=== PATIENT | female | born 1965 | race Caucasian/White ===

== ENCOUNTER 2017-04-06 14:03 | Emergency (ER) | payer OTHER, SELFPAY ==
[~2017-04-06] VITALS: Ht 157.5 cm; Wt 90.5 kg
[2017-04-06 14:38] VITALS: BP 130/77
[2017-04-06] MEDS ORDERED: DIPHENHYDRAMINE 25 MG CAPSULE ONE (14:47)
[2017-04-06] MEDS ORDERED: LORazepam 1MG TABLET ONE (14:47)
[2017-04-06] MEDS ORDERED: DIPHENHYDRAMINE 25 MG CAPSULE PO ONE (15:00)
[2017-04-06] MEDS ORDERED: LORazepam 1MG TABLET PO ONE (15:00)
== END 2017-04-06 16:40 | disposition home or self-care (01) ==
LOC: ED 16:34
DX: T78.1XXA Other adverse food reactions, not elsewhere classified, initial encounter (principal); I10 Essential (primary) hypertension; X58.XXXA Exposure to other specified factors, initial encounter
CPT/HCPCS: 93005; 99283; Q0163

== ENCOUNTER 2018-10-12 23:25 | Emergency (ER) | payer OTHER ==
[~2018-10-12] VITALS: Ht 157.5 cm; Wt 97.7 kg
[2018-10-12 23:28] VITALS: BP 136/93
--- NOTE | 2018-10-13 00:25 | NUR ---
PT LEAVING AMA, ENCOURAGED TO STAY, REFUSES, AMBUALTE OUT WITH STEADY GAIT, NAD
== END 2018-10-13 00:42 | disposition left against medical advice (07) ==
LOC: ED 10-13 00:36
DX: F41.9 Anxiety disorder, unspecified (principal); Z53.21 Procedure and treatment not carried out due to patient leaving prior to being seen by health care provider